=== PATIENT | female | born 1985 | race Caucasian/White ===

== ENCOUNTER 2017-04-07 09:00 | Outpatient (CLI) | payer MEDICAID | END 2017-04-07 23:59 | disposition home or self-care (01) | LOC: D.MAMMO 09:00 | DX: Z12.31 Encounter for screening mammogram for malignant neoplasm of breast (principal) ==

== ENCOUNTER 2019-02-12 13:45 | Inpatient (IN) | payer MEDICAID ==
[~2019-02-12] VITALS: Ht 160 cm; Wt 59.0 kg
--- NOTE | 2019-02-12 13:55 | NUR ---
RECEIVED PT TO FLOOR. QUICK START AND ADMISSION HISTORY TAKEN AT THIS TIME. ATTEMPTED TO START IV ON PT, NOTIFIED SHASTA JORDAN TO MAKE AN ATTEMPT AT AN IV. PT IS RESTING COMFORTABLY IN BED. VSS. T-98.3, BP-131/86, P-91, R-20, O2- 98% ON ROOM AIR. PT DENIES ANY NEEDS AT THIS TIME. WILL CTM.
[2019-02-12] MEDS ORDERED: ADDERALL XR 3030 MG PO (14:04)
[2019-02-12] MEDS ORDERED: ADDERALL 10 MG10 MG PO (14:04)
[2019-02-12] MEDS ORDERED: NEURONTIN 300300 MG PO (14:04)
[2019-02-12] MEDS ORDERED: SULFAMETHOXAZOL1 TA2 PO (14:05)
--- NOTE | 2019-02-12 14:11 | NUR ---
ORDERS FAXED TO PHARMACY FOR MEDICATION ORDER INPUT.
[2019-02-12 14:41] VITALS: BP 131/86
[2019-02-12 14:54] VITALS: BP 131/86; BMI 23.0
[2019-02-12 15:05] LABS: BASOPHILS 0.3 % (0-2); EOSINOPHILS 0.9 % (0-7); HEMATOCRIT 38.5 % (36.0-48.0); HEMOGLOBIN 13.4 g/dL (12-16); IMMATURE GRANULOCYTES 0.3 % (0-5); LYMPHOCYTES 33.4 % (15-50); MCH 30.9 pg (26.0-34.0); MCHC 34.8 g/dL (31.0-37.0); MCV 88.9 fL (80.0-100.0); MEAN PLATELET VOLUME 10.2 fL (7.4-10.4); MONOCYTES 6.9 % (2-11); NEUTROPHILS 58.2 % (40-80); PLATELET COUNT 205 10x3/uL (130-400); RBC 4.33 10x6/uL (4.00-5.40); RDW 13.3 % (11.5-14.5); WBC 7.4 10x3/uL (4.8-10.8)
--- NOTE | 2019-02-12 15:15 | NUR ---
VASCULAR ACCESS NURSE CALLED FOR ASSISTANCE IN PLACING PIV.
--- NOTE | 2019-02-12 15:23 | NUR ---
VASCULAR ACESS NURSE IN ROOM ATTEMPTING TO START IV.
[2019-02-12 15:40] LABS: ALBUMIN 3.7 g/dL (3.4-5.0); ALKALINE PHOSPHATASE 115 U/L (46-116); ALT (SGPT) 13 U/L (10-68); BILIRUBIN - TOTAL 0.28 mg/dL (0.2-1.3); CALC OSMOLALITY 277 mosm/kg (275-300); CALCIUM 9.1 mg/dL (8.5-10.1); CARBON DIOXIDE 26.4 mmol/L (21.0-32.0); CHLORIDE - SERUM 104 mmol/L (98-107); CREATININE - SERUM 0.8 mg/dL (0.6-1.3); GLUCOSE 91 mg/dL (74-106); POTASSIUM - SERUM 3.5 mmol/L (3.5-5.1); SODIUM 140 mmol/L (136-145); UREA NITROGEN 11 mg/dL (7-18); eGFR NON AFRICAN AMERICAN 86 mL/min (90-120)
[2019-02-12 15:50] LABS: C-REACTIVE PROTEIN < 0.2 mg/dL (0.0-0.9)
--- NOTE | 2019-02-12 17:00 | NUR ---
PT CONT WITHOUT IV ACCESS DESPITE MULTIPLE ATTEMPTS FROM MULTIPLE STAFF MEMBERS. VASCULAR ACCESS WITHOUT SUCCESS FOR IV ACCESS WELL. ER NURSE NOTIFIED OF NEED FOR IV ACCESS. 22G PLACED TO RIGHT WRIST X 1 ATTEMPT. BED IS IN THE LOWEST POSITION. CALL LIGHT AND BEDSIDE TABLE ARE WITHIN REACH. SIDE RAILS X 2. PT DENIES FURTHER NEEDS. WILL CONT TO MONITOR.
[2019-02-12 17:10] LABS: UDS - AMPHET POSITIVE QUAL (NEGATIVE); UDS - BARB NEGATIVE QUAL (NEGATIVE); UDS - BENZO NEGATIVE QUAL (NEGATIVE); UDS - COCAINE NEGATIVE QUAL (NEGATIVE); UDS - OPIATE NEGATIVE QUAL (NEGATIVE); UDS - PCP NEGATIVE QUAL (NEGATIVE); UDS - THC NEGATIVE QUAL (NEGATIVE)
--- NOTE | 2019-02-12 17:35 | NUR ---
D/C PT IV DUE TO SWELLING, REDNESS AND PT COMPLAINT OF SEVERE IV PAIN. CATHETER TIP INTACT. TOLERATED WELL. PT REQUESTED WATER, PROVIDED PROMPTLY. RESTING COMFORTABLY SUPINE IN BED. DENIES OTHER NEEDS. WILL CTM.
--- NOTE | 2019-02-12 18:52 | NUR ---
SITED PATIENT'S IV TO THE LEFT HAND WITH A 22G ON THE SECOND ATTEMPT.
[2019-02-12 20:00] VITALS: BP 117/72
--- NOTE | 2019-02-12 20:02 | NUR ---
PAGEMathew GALLEGOS IN REGARDS TO PATIENT'S 02/19 PAIN
[2019-02-12 23:52] VITALS: BP 118/68
[2019-02-13 04:00] VITALS: BP 104/72
[2019-02-13 05:38] LABS: BASOPHILS 0.4 % (0-2); EOSINOPHILS 2.1 % (0-7); HEMATOCRIT 35.4 % (36.0-48.0); IMMATURE GRANULOCYTES 0.2 % (0-5); LYMPHOCYTES 45.5 % (15-50); MCH 30.2 pg (26.0-34.0); MCHC 33.9 g/dL (31.0-37.0); MCV 88.9 fL (80.0-100.0); MEAN PLATELET VOLUME 10.8 fL (7.4-10.4); MONOCYTES 11.1 % (2-11); NEUTROPHILS 40.7 % (40-80); PLATELET COUNT 201 10x3/uL (130-400); RBC 3.98 10x6/uL (4.00-5.40); RDW 13.3 % (11.5-14.5); WBC 5.6 10x3/uL (4.8-10.8)
[2019-02-13 06:23] LABS: ALBUMIN 2.9 g/dL (3.4-5.0); ALKALINE PHOSPHATASE 95 U/L (46-116); ALT (SGPT) 14 U/L (10-68); BILIRUBIN - TOTAL 0.26 mg/dL (0.2-1.3); CALC OSMOLALITY 285 mosm/kg (275-300); CALCIUM 8.3 mg/dL (8.5-10.1); CHLORIDE - SERUM 108 mmol/L (98-107); CREATININE - SERUM 0.8 mg/dL (0.6-1.3); GLUCOSE 102 mg/dL (74-106); MAGNESIUM - SERUM 1.8 mg/dL (1.8-2.4); PHOSPHOROUS 4.4 mg/dL (2.5-4.9); POTASSIUM - SERUM 3.9 mmol/L (3.5-5.1); PROTEIN - SERUM 6.1 g/dL (6.4-8.2); SODIUM 143 mmol/L (136-145); UREA NITROGEN 15 mg/dL (7-18); eGFR NON AFRICAN AMERICAN 86 mL/min (90-120)
--- NOTE | 2019-02-13 07:10 | NUR ---
REPORT RECEIVED FROM CAUL DRESSER AND PATIENT CARE ASSUMED. PATIENT LAYIN IN BED ON LEFT SIDE WITH EYES CLOSED AND BREATHING EVENLY. PATIENT IN NPO AWAITING I AND D TODAY. WILL CONTINUE WITH PLAN OF CARE. SR UP X2 BED IN LOW POSITION AND CALL LIGHT IN REACH.
--- NOTE | 2019-02-13 09:15 | NUR ---
PATIENT IS STABLE AND VSS. CALL FROM SURGERY TEAM TO PREOP PATIENT. PREOPPED PATIENT PER MAR. PATIENT DENIES ANY NEEDS OR PAIN. WILL CONTINUE TO MONITOR. SR UP X 2 BED IN LOW POSITION AND CALL LIGHT IN REACH.
--- NOTE | 2019-02-13 09:58 | NUR ---
RECEIVED CALL FROM INFECTION CONTROL. PATIENT IS TO BE PLACED ON CONTACT PRECAUTIONS FOR POSSIBLE MRSA. PATIENT WILL UNDERGOING AN I AND D CULTURE SPECIMEN WILL BE TAKEN AT THAT TIME. CONTACT PRECAUTIONS IN PLACE.
[2019-02-13 10:37] VITALS: Ht 160 cm; Wt 59.0 kg
--- NOTE | 2019-02-13 10:40 | NUR ---
PATIENT COMPLAINS OF PAIN OF A 10 AND PATIENT IS IN TEARS. MEDICATED PER MAR WITH MORPHINE 4MG IV. PATIENT TOLERATED WELL. WILL CONTINUE TO MONITOR. SR UP X 2 BED IN LOW POSITION AND CALL LIGHT IN REACH.
--- NOTE | 2019-02-13 10:59 | NUR ---
PATIENT IS STABLE AND VSS. SURGERY TEAM IN ROOM TO TRANSPORT PATIENT TO SURGERY VIA HOSPITAL BED.
--- NOTE | 2019-02-13 11:09 | NUR ---
RAYA BOOT USED
--- NOTE | 2019-02-13 12:03 | NUR ---
PT NOT IN ROOM. SHE HAS BEEN TRANSPORTED TO OR FOR I&D OF RIGHT LEG ABSCESS.
--- NOTE | 2019-02-13 12:07 | NUR ---
TWO SILVER COLOR RINGS SENT WITH PT TO PACU ONE WITH HEART ON IT, ONE WITH SMALL CLEAR STONES GIVEN TO PACU NURSE ANDRA LUCAS
--- NOTE | 2019-02-13 14:44 | NUR ---
PATIENT LAYING ON BACK WITH GRAHAM LEGS ELEVATED. PATIENT HAS EYES CLOSED AND BREATHING EVENLY. FAMILY AT BS. WILL CONTINUE TO MONITOR. SR UP X 2 BED IN LOW POSITION AND CALL LIGHT IN REACH.
--- NOTE | 2019-02-13 20:49 | NUR ---
PT C/O PAIN IN LEGS, A LEVEL OF 9. 1MG HYDROMORPHONE GIVEN ORDERED.
[2019-02-13 21:42] VITALS: BP 110/81
--- NOTE | 2019-02-13 22:50 | NUR ---
PT C/O ITCHING IN BOTH LEGS. PAGED [place] FOR BENADRYL. 50MG BENADRYL ONE AND 25 MG BID PRN ORDERED FOR ITCHING. AND GIVEN 50MG FOR PT. WILL MONITOR CLOSELY.
--- NOTE | 2019-02-13 23:01 | NUR ---
I have reviewed this patient and I concur with the Shift Assessment completed by the Licensed Practical Nurse today this shift.
[2019-02-13 23:31] VITALS: BP 108/66
[2019-02-14 04:45] VITALS: BP 105/67
[2019-02-14 05:50] LABS: BASOPHILS 0 % (0-2); EOSINOPHILS 0.2 % (0-7); HEMATOCRIT 34.5 % (36.0-48.0); HEMOGLOBIN 11.7 g/dL (12-16); IMMATURE GRANULOCYTES 0.2 % (0-5); LYMPHOCYTES 16.9 % (15-50); MCHC 33.9 g/dL (31.0-37.0); MCV 88.5 fL (80.0-100.0); MEAN PLATELET VOLUME 10.8 fL (7.4-10.4); MONOCYTES 6.4 % (2-11); NEUTROPHILS 76.3 % (40-80); PLATELET COUNT 197 10x3/uL (130-400); RDW 12.8 % (11.5-14.5)
[2019-02-14 05:55] LABS: WBC 9.1 10x3/uL (4.8-10.8)
[2019-02-14 05:57] LABS: CALC OSMOLALITY 283 mosm/kg (275-300); CALCIUM 8.5 mg/dL (8.5-10.1); CARBON DIOXIDE 28.5 mmol/L (21.0-32.0); CHLORIDE - SERUM 106 mmol/L (98-107); CREATININE - SERUM 0.7 mg/dL (0.6-1.3); GLUCOSE 131 mg/dL (74-106); MAGNESIUM - SERUM 1.5 mg/dL (1.8-2.4); POTASSIUM - SERUM 3.7 mmol/L (3.5-5.1); SODIUM 141 mmol/L (136-145); UREA NITROGEN 14 mg/dL (7-18); eGFR NON AFRICAN AMERICAN > 90 mL/min (90-120)
--- NOTE | 2019-02-14 06:01 | NUR ---
PT SLEEPING UPON ENTERING ROOM. PLACED "DO NOT REMOVE UNNA BOOTS" SIGN ABOVE BED. WOKE PT UP TO TAKE AM MEDS, PT REFUSED TO TAKE MEDS. WOULD NOT GIVE REASON, WENT BACK TO SLEEP.
--- NOTE | 2019-02-14 07:58 | NUR ---
REPORT RECIEVED. PT SITTING UP IN BED CURRENTLY COMPLAINING OF 8/10 PAIN. PAIN MEDS GIVEN. SHE STATES HE LEGS ITCH AND AND HURTING BAD. RR EVEN AND UNLABORED. NO DISTRESS NOTED. BED LOCKED AND IN LOWEST POSITION. CALL LIGHT WITHIN REACH. WILL CTM
[2019-02-14 20:03] VITALS: BP 125/77
[2019-02-15] VITALS: BP 123/75
[2019-02-15 01:56] VITALS: BP 172/73
[2019-02-15 01:59] VITALS: BP 172/73
[2019-02-15 04:00] VITALS: BP 118/88
--- NOTE | 2019-02-15 05:27 | NUR ---
ASSESSED AT THE BEGINNING OF THE SHIFT. PT IS ALERT AND ORIENTED, ABLE TO VERBALIZE NEEDS. SHE WAS FINE AT THE BEGINNING BUT AFTER ABOUT 2200 SHE STARTED COMPLAINING OF SEVERE PAIN IN HER LEGS AND CALLED FOR PAIN MEDS. SHE REFUSED MOST OF HER MEDS AT AND THIS MORNING. SHE DID TAKE HER PROTONIX AFTER BEING REMINDED THAT SHE WAS COMPLAINING OF INDIGESTION EARLIER IN THE NIGHT. AFTER PAIN MEDS SHE SLEEPS FOR A LITTLE WHILE AND THEN CALLS AGAIN FOR PAIN MEDS. THIS MORNING SHE IS RESTING QUIET AFTER MORPHINE.
[2019-02-15 06:44] LABS: BASOPHILS 0.2 % (0-2); EOSINOPHILS 1.4 % (0-7); HEMATOCRIT 33.8 % (36.0-48.0); HEMOGLOBIN 11.4 g/dL (12-16); LYMPHOCYTES 44.8 % (15-50); MCH 30.4 pg (26.0-34.0); MCHC 33.7 g/dL (31.0-37.0); MCV 90.1 fL (80.0-100.0); MEAN PLATELET VOLUME 10.4 fL (7.4-10.4); NEUTROPHILS 45.6 % (40-80); PLATELET COUNT 172 10x3/uL (130-400); RBC 3.75 10x6/uL (4.00-5.40); RDW 13.1 % (11.5-14.5)
[2019-02-15 06:54] LABS: WBC 5.9 10x3/uL (4.8-10.8)
[2019-02-15 07:01] LABS: CALC OSMOLALITY 285 mosm/kg (275-300); CALCIUM 8.1 mg/dL (8.5-10.1); CARBON DIOXIDE 31.1 mmol/L (21.0-32.0); CHLORIDE - SERUM 108 mmol/L (98-107); CREATININE - SERUM 0.8 mg/dL (0.6-1.3); GLUCOSE 94 mg/dL (74-106); MAGNESIUM - SERUM 1.9 mg/dL (1.8-2.4); POTASSIUM - SERUM 3.9 mmol/L (3.5-5.1); SODIUM 144 mmol/L (136-145); UREA NITROGEN 9 mg/dL (7-18); eGFR NON AFRICAN AMERICAN 86 mL/min (90-120)
--- NOTE | 2019-02-15 07:42 | NUR ---
REPORT RECIEVED. PT LYING SUPINE. RR EVEN AND UNLABORED. L HAND PIV INFUSING NS @ [facility]. PT HAS BILAT UNNA BOOT TO LOWER LEGS. BED LOCKED AND IN LOWEST POSITION. CALL LIGHT WITHIN REACH. WILL CTM
[2019-02-15 16:07] VITALS: BP 113/77
--- NOTE | 2019-02-15 17:51 | MORECARE ---
CASE MANAGEMENT DISCHARGE SUMMARY PATIENT: JORJE SHAIKH UNIT: [id number] ADM DATE: 02/13/19 AGE: 33 : 81 SEX: F ROOM/BED: D.1202 AUTHOR: PACO WOLFE PHYSICIAN: REFERRING PHYSICIAN: AVERY KERN MD DATE OF SERVICE: 02/15/19 Discharge Plan Patient Name: JORJE SHAIKH [facility] [facility] 1985 Planned Disposition: Home Anticipated Discharge Date: Discharge Date: Expected LOS: Initial Reviewer: [email or web address] Initial Review Date: 02/15/2019 Generated: 02/15/19 6:51 pm DCPIA - Discharge Planning Initial Assessment Updated by [email or web address]: Sirena Lizarraga on 02/15/19 5:51 pm * Is the patient Alert and Oriented? Yes * How many steps to enter\exit or inside your home? * PCP CONCHA * [facility] * Preadmission Environment Home with Family * ADLs Independent * Equipment None * List name and contact numbers for known caregivers / representatives who currently or will assist patient after discharge: VIRA SHAIKH [facility] - [phone] * Verbal permission to speak to the caregivers and representatives has been obtained from the patient. Yes * Community resources currently utilized None * Additional services required to return to the preadmission environment? No * Can the patient safely return to the preadmission environment? Yes * Has this patient been hospitalized within the prior 30 days at any hospital? No Patient Name: JORJE SHAIKH Page [id number] at 1751 All edits/amendments must be made on the electronic document DICTATION DATE: 02/15/191750 PRODUCT SAFETY HEAD: SHUN 02/15/191750 RPT#: [id number] DC DATE: STATUS: ADM IN [address] [place] [address] END OF REPORT
--- NOTE | 2019-02-15 17:59 | MORECARE ---
CASE MANAGEMENT DISCHARGE SUMMARY PATIENT: JORJE SHAIKH UNIT: [id number] ADM DATE: 02/13/19 AGE: 33 : 83 SEX: F ROOM/BED: D.1202 AUTHOR: YANETH,DOC PHYSICIAN: REFERRING PHYSICIAN: AVERY KERN MD DATE OF SERVICE: 02/15/19 Discharge Plan Patient Name: JORJE SHAIKH [facility]:[place] : 1985 Planned Disposition: Home Anticipated Discharge Date: Discharge Date: Expected LOS: Initial Reviewer: [email or web address] Initial Review Date: 02/15/2019 Generated: 02/15/19 6:59 pm Comments DCP- Discharge Planning Updated by [email or web address]: Sirena Lizarraga on 02/15/19 4:[address] Patient Name: JORJE SHAIKH Admission Status: Urgent Accout number: [id number] Admission Date: 02-13-2019 : 1985 Admission Diagnosis: Attending: CONCHA, Current LOS: 2 Anticipated DC Date: Planned Disposition: Home Primary Insurance: [place] [employer] [facility] Discharge Planning Comments: CM met with patient to complete initial dc planning assessment. CM educated patient on the CM role and verbal consent given by patient to complete assessment. Patient lives at home with her where she is independent with her care. At discharge patient plans to return home and feels this is a safe discharge. CM discussed availability of home health, rehab services, and medical equipment. Patient will have family drive her home upon discharge. Patient denied known discharge needs at this time. Patient has no preference of services if needed upon discharge for wound care. DOMINIQUE signed with that statement. CM will continue to follow and will assist as needed with dc plans/needs. Human Services Program Specialist: Sirena Lizarraga DCPIA - Discharge Planning Initial Assessment Updated by [email or web address]: Sirena Lizarraga on 02/15/19 5:51 pm * Is the patient Alert and Oriented? Yes * How many steps to enter\exit or inside your home? * PCP CONCHA * [facility] * Preadmission Environment Home with Family * ADLs Independent * Equipment None * List name and contact numbers for known caregivers / representatives who currently or will assist patient after discharge: VIRA SHAIKH - SPOUSE - [phone] * Verbal permission to speak to the caregivers and representatives has been obtained from the patient. Yes * Community resources currently utilized None * Additional services required to return to the preadmission environment? No * Can the patient safely return to the preadmission environment? Yes * Has this patient been hospitalized within the prior 30 days at any hospital? No Last DP export: 02/15/19 4:51 pm Patient Name: JORJE SHAIKH Page [id number] at 1759 All edits/amendments must be made on the electronic document DICTATION DATE: 02/15/191758 CASH SALES AUDIT CLERK: SHUN 02/15/191758 RPT#: [id number] ME DATE: STATUS: ADM IN [facility] [address] [place] [address] END OF REPORT
--- NOTE | 2019-02-15 19:23 | NUR ---
BEDSIDE REPORT AND INITIAL ROUNDS COMPLETED. PT RESTING IN BED. NO DISTRESS. KRIS BOOTS IN PLACE. CALL LIGHT IN REACH.
[2019-02-15 20:00] VITALS: BP 139/77
--- NOTE | 2019-02-15 20:40 | NUR ---
VISITORS AT BEDSIDE AND VISITOR IS COMPLAINING THAT ROOM IS TOO "STAGNANT". PATIENT STATES THE SHIRT CLEANER WAS IN THE ROOM AN HOUR AGO AND WORKED ON THE UNIT. ROOM FEELS COOL AND HAS FAN BLOWING. CALLED AND SPOKE WITH FLORES IN ENGINEERING AND HE SAID HE WAS THE ONE THAT COMPLETED THE WORK ORDER ON THE AIR AND HE HAD ALREADY CHECKED BACK ON THE PATIENT AND HOUR AGO AND SHE HAD SAID EVERYTHING WAS GOOD. PATIENT DID NOT HAVE VISITORS AT THAT TIME. FLORES STATES HE WILL RETURN TO UNIT AND RECHECK ROOM AGAIN. FLORES FROM ENGINEERING HAS RETURNED TO ROOM AND USED THE TEMPERATURE GUN TO CHECK THE BLOWING AIR AND IT IS 65 DEGREES. HE STATES PATIENT IS AGAIN SAYING ROOM IS OKAY. WILL MONITOR.
--- NOTE | 2019-02-15 21:09 | NUR ---
PT AND VISITOR NOW REQUESTING TO USE WHEELCHAIR TO GO OUTSIDE FOR FRESH AIR. PT IS ADLIB IN ROOM. KRIS BOOT IN PLACE. DISCUSSED BEDTIME MEDS WITH PATIENT AND SHE DOES NOT WANT TO TAKE HER NEURONTIN. CPOC.
[2019-02-16 01:00] VITALS: BP 119/69
--- NOTE | 2019-02-16 01:19 | NUR ---
PT ON LIGHT, REQUESTING PAIN MED. ARRIVED TO ROOM TO FIND PATIENT IN POSITION CRYING AND MOANING. VSS. IV MORPHINE ADMINISTERED. PT ASKED WHERE HER BENADRYL WAS, ASKED PT IS SHE WAS ITCHING AND SHE SAID SHE WAS USED TO GETTING IT WITH HER MORPHINE. PT THEN BEGAN TO SCRATCH HER ARMS. PROVIDED WITH ORAL BENADRYL. IVF INFUSING AT [facility]. OC.
--- NOTE | 2019-02-16 05:56 | NUR ---
PT CALLED TO STATION FOR ANOTHER PAIN SHOT. WENT TO ROOM TO REMIND PATIENT THAT SHE HAD DILAUDID AT 0430. PT CRYING AND ROCKING IN HER BED. MOANING AND BEATING ON HER LEGS WITH HER HANDS AND HAIRBRUSH. SAYING THAT SHE JUST CANNOT TOLERATE THE PAIN OR THE CONSTANT ITCHING ANYMORE. PT FOLLOWED NURSE UP TO STATION AND ASKED FOR IBUPROFEN. MED GIVEN. PT THEN ASKING FOR FOOD. OFFERED SANDWICH TRAY. PT DECLINED. SHE DID TAKE HER LEFTOVER ICECREAM AND RETURN TO HER ROOM. CPOC. PT DID REFUSE HER AM PROTONIX AND LINZESS.
[2019-02-16 07:14] LABS: BASOPHILS 0.3 % (0-2); EOSINOPHILS 1.8 % (0-7); HEMATOCRIT 35.3 % (36.0-48.0); HEMOGLOBIN 11.7 g/dL (12-16); IMMATURE GRANULOCYTES 0.1 % (0-5); LYMPHOCYTES 37.2 % (15-50); MCH 29.8 pg (26.0-34.0); MCHC 33.1 g/dL (31.0-37.0); MCV 90.1 fL (80.0-100.0); MEAN PLATELET VOLUME 10.9 fL (7.4-10.4); MONOCYTES 8.9 % (2-11); NEUTROPHILS 51.7 % (40-80); PLATELET COUNT 199 10x3/uL (130-400); RBC 3.92 10x6/uL (4.00-5.40); RDW 12.8 % (11.5-14.5); WBC 7.2 10x3/uL (4.8-10.8)
[2019-02-16 07:18] LABS: CALC OSMOLALITY 284 mosm/kg (275-300); CALCIUM 8.7 mg/dL (8.5-10.1); CARBON DIOXIDE 32.9 mmol/L (21.0-32.0); CHLORIDE - SERUM 104 mmol/L (98-107); CREATININE - SERUM 0.9 mg/dL (0.6-1.3); GLUCOSE 93 mg/dL (74-106); MAGNESIUM - SERUM 1.8 mg/dL (1.8-2.4); POTASSIUM - SERUM 3.9 mmol/L (3.5-5.1); SODIUM 143 mmol/L (136-145); eGFR NON AFRICAN AMERICAN 75 mL/min (90-120)
[2019-02-16 07:21] LABS: UREA NITROGEN 13 mg/dL (7-18)
[2019-02-16 08:15] VITALS: BP 105/59
--- NOTE | 2019-02-16 09:15 | NUR ---
PT ALERT X 4. BREATH SOUNDS CLEAR BILAT. IV TO LEFT HAND, PATENT, DRESSING CDI. PT REPORTING PAIN OF 8/10, MEDICATED PER ORDERS, WILL MONITOR. UNNA BOOTS IN PLACE. FAMILY AT BEDSIDE. BED LOW, CALL LIGHT IN REACH. NO OTHER NEEDS AT THIS TIME.
--- NOTE | 2019-02-16 10:53 | NUR ---
PT REQUESTING TO GO HOME TODAY
[2019-02-16 11:58] VITALS: BP 131/83
[2019-02-16] MEDS ORDERED: SULFAMETHOXAZOL1 TA2 PO (16:00)
--- NOTE | 2019-02-16 17:10 | NUR ---
DISCHARGE PAPERWORK SIGNED, ALL QUESTIONS ANSWERED. IV TO LEFT HAND DC'D, TIP INTACT. PT AMBULATED OUT
--- NOTE | 2019-02-18 08:49 | MORECARE ---
CASE MANAGEMENT DISCHARGE SUMMARY PATIENT: JORJE SHAIKH UNIT: [id number] ADM DATE: 02/13/19 AGE: 33 : 81 SEX: F ROOM/BED: D.1202 AUTHOR: YANETH,DOC PHYSICIAN: REFERRING PHYSICIAN: AVERY KERN MD DATE OF SERVICE: 02/18/19 Discharge Plan Patient Name: JORJE SHAIKH [facility]:[place] : 1985 Planned Disposition: Home Anticipated Discharge Date: Discharge Date: 02/16/2019 Expected LOS: Initial Reviewer: [email or web address] Initial Review Date: 02/15/2019 Generated: 02/18/19 9:48 am DCP- Discharge Planning Updated by [email or web address]: Sirena Lizarraga on 02/15/19 4:[address] Patient Name: JORJE SHAIKH Admission Status: Urgent Accout number: [id number] Admission Date: 02-13-2019 : 1985 Admission Diagnosis: Attending: CONCHA, Current LOS: 2 Anticipated DC Date: Planned Disposition: Home Primary Insurance: [place] [employer] [place] Discharge Planning Comments: CM met with patient to complete initial dc planning assessment. CM educated patient on the CM role and verbal consent given by patient to complete assessment. Patient lives at home with her where she is independent with her care. At discharge patient plans to return home and feels this is a safe discharge. CM discussed availability of home health, rehab services, and medical equipment. Patient will have family drive her home upon discharge. Patient denied known discharge needs at this time. Patient has no preference of services if needed upon discharge for wound care. DOMINIQUE signed with that statement. CM will continue to follow and will assist as needed with dc plans/needs. Associate Pastor: Sirena Lizarraga DCPIA - Discharge Planning Initial Assessment Updated by [email or web address]: Sirena Lizarraga on 02/15/19 5:51 pm * Is the patient Alert and Oriented? Yes * How many steps to enter\exit or inside your home? * PCP CONCHA * [facility] * Preadmission Environment Home with Family * ADLs Independent * Equipment None * List name and contact numbers for known caregivers / representatives who currently or will assist patient after discharge: VIRA SHAIKH - SPOUSE - [phone] * Verbal permission to speak to the caregivers and representatives has been obtained from the patient. Yes * Community resources currently utilized None * Additional services required to return to the preadmission environment? No * Can the patient safely return to the preadmission environment? Yes * Has this patient been hospitalized within the prior 30 days at any hospital? No Last DP export: 02/15/19 4:59 pm Patient Name: JORJE SHAIKH Page [phone] at 0849 All edits/amendments must be made on the electronic document DICTATION DATE: 02/18/19847 VP CELEBRITY SERVICES: SHUN 02/18/19847 RPT#: [id number] DC DATE:02/16/19 STATUS: DIS IN [facility] [address] [place] [address] END OF REPORT
--- NOTE | 2019-03-11 17:51 | OP ---
PATIENT NAME: JORJE SHAIKH MEDICAL RECORD: [id number] :[birth year] LOCATION:D.M3 D.1202 ADMISSION DATE:02/13/19 SURGEON: TOMMY WINTERS MD DATE OF OPERATION: 02/13/2019 PREOPERATIVE DIAGNOSIS: Necrotic abscess of the right leg. POSTOPERATIVE DIAGNOSIS: Necrotic abscess of the right leg. Please see the dimensions. PROCEDURES: Wide excision with marsupialization and packing of abscess of the right leg. Dimensions of the debridement, including margins, measures 1.5 x 1.0 cm in greatest dimension. The excised tissues included skin and subcutaneous tissue as well as abscess cavity. I then marsupialized the wound and packed it with sterile moistened gauze. The risks, possible complications, and alternatives to the procedure were explained to the patient. She elects to proceed. OPERATIVE COURSE: The patient was conveyed to the operating room electively on 02/13/2019. General anesthesia was induced by the anesthesia staff. The right leg was sterilely prepped and draped. Through the use of a scalpel, an incision was accomplished overlying the abscess cavity. I excised skin and subcutaneous tissues as well as a portion of the overlying the abscess cavity. I then curetted out the abscess cavity. Cultures were obtained. Meticulous hemostasis was achieved with electrocautery. I then irrigated with hydrogen peroxide. I then marsupialized the wound with a running locking 3-0 Vicryl Rapide suture. I then packed the wound with moistened gauze. The patient was then extubated and conveyed to the post-anesthesia care unit where she was in stable condition. I plan that she will be kept in the hospital for a day or 2 on intravenous antibiotics. TRANSINT:[id number] Voice Confirmation ID: [id number] DOCUMENT ID: [id number] TOMMY WINTERS MD at 1751 CC: [id number] DICTATION DATE: 03/11/19 1154 BIOINFORMATICIST: 03/11/19 1353 DIS IN 02/16/19 [place] [id number]
== END 2019-02-16 17:11 | disposition home or self-care (01) | DRG 572 ==
LOC: D.M3 13:45 → OBSVTIME 13:47 → D.M3 02-13 11:09
PROVIDERS: Family Medicine Adult Medicine; Surgery; ADMIT Family Medicine; ATTEND Family Medicine
PROC: 0JBN0ZZ Excision of Right Lower Leg Subcutaneous Tissue and Fascia, Open Approach (ICD-10-PCS; principal; 2019-02-13 13:15)
DX: L02.415 Cutaneous abscess of right lower limb (principal); F15.90 Other stimulant use, unspecified, uncomplicated; B95.62 Methicillin resistant Staphylococcus aureus infection as the cause of diseases classified elsewhere; F98.8 Other specified behavioral and emotional disorders with onset usually occurring in childhood and adolescence

== ENCOUNTER 2019-08-06 06:39 | Day surgery (SDC) | payer BC ==
[~2019-08-06] VITALS: Ht 160 cm; Wt 63.5 kg
[2019-08-06 06:58] LABS: HEMATOCRIT 39.5 % (36.0-48.0); HEMOGLOBIN 13.2 g/dL (12-16); MCH 30.2 pg (26.0-34.0); MCHC 33.4 g/dL (31.0-37.0); MCV 90.4 fL (80.0-100.0); MEAN PLATELET VOLUME 9.8 fL (7.4-10.4); RBC 4.37 10x6/uL (4.00-5.40); WBC 4.9 10x3/uL (4.8-10.8)
[2019-08-06 07:28] VITALS: BP 113/72; Ht 160 cm; Wt 63.5 kg
--- NOTE | 2019-08-06 14:47 | NUR ---
1245 ARRIVED TO ROOM PT VERY HAPPY AND DROWSEY. 1250 PT HAVING A MILD PANIC ATTACK ABOUT SLING ARROUND NECK. 1300 RECIEVED A TRAY AND TOLERATING WELL. 1350 INSTRUCTIONS GIVEN AND IV REMOVED. ASSISTED WITH GETTING DRESSED, 1355 D.C HOME
--- NOTE | 2019-08-07 08:09 | OP ---
PATIENT NAME: JORJE DAVID MEDICAL RECORD: [id number] :[birth year] LOCATION:[facility] ADMISSION DATE: SURGEON: ANAND ASENCIO DO DATE OF OPERATION: 08/06/2019 PROCEDURE PERFORMED: Right shoulder arthroscopy with subacromial decompression, distal clavicle excision and biceps tenodesis. PREOPERATIVE DIAGNOSES: Right shoulder superior labrum anterior and posterior tear, biceps tendonitis, subacromial impingement and acromioclavicular joint arthritis. POSTOPERATIVE DIAGNOSES: Right shoulder superior labrum anterior and posterior tear, biceps tendonitis, subacromial impingement and acromioclavicular joint arthritis. INDICATIONS: Ms. David is a 34-year-old female who has gone through several rounds of injections and physical therapy for her right shoulder pain. She was tired of dealing with the pain and wants something done surgically to deal with it. I informed her of the risks and benefits of the surgery including continued shoulder pain, infection, bleeding, damage to nerves and vessels, need for further surgery, continued pain and need for physical therapy after she was okay with that and signed a consent. SURGEON: Anand Asencio DO DESCRIPTION OF PROCEDURE: The patient received a block by anesthesia in the preoperative area. She was taken to the operative suite, laid in the left lateral decubitus position and given general anesthetic and LMA was then placed. She was given 2 grams of Ancef preoperatively. After the patient had been positioned and then sedated as described above, an LMA was placed. The right shoulder was then prepped and draped in sterile fashion. Timeout was performed, everyone was in agreeance of the correct side, site, patient and procedure. We then started by putting an 18-gauge spinal needle into the posterior aspect of the shoulder and inflating the shoulder joint itself with 60 mL normal saline. We then established a posterior portal with an 11-blade scalpel and a trocar was entered in the shoulder joint. Anterior portal was then established with an 18-gauge spinal needle and 11-blade scalpel. I then inspected the bicep tendon. There was a type 2 SLAP tear seen just at the apex of the glenoid and then the biceps brought down into the joint. It was seen to be quite irritated. I then used a burner to do a tenotomy at that time of the long head of the bicep tendon. The rest of the shoulder was inspected. The rotator cuff did not have any tears in the subscapularis and the supraspinatus and infraspinatus. There is nothing in the joint. Then went to the subacromial space. A lateral portal was then established using 18-gauge spinal needle and 11-blade scalpel. Subacromial decompression was done with acromioplasty as well as a distal clavicle excision. The AC joint was almost touching the ground together and I opened up the AC joint, approximately 7 mm. I then did a thorough debridement of the rotator cuff on the bursal side and inspected it and did not see any tears on that. I then removed the scope and went to the anterior humerus and a small incision was made in the anterior humerus. Careful dissection was made down to long head biceps tendon was pulled out through the incision and a pin was used to make a hole unicortically in the humerus and then a 2.9 unicortical bicep fixation. A JuggerKnot was used, put in the humerus. It was very well fixed and then I looped the biceps tendon through the loop and cinched it down OPERATIVE REPORT [id number] JORJE DAVID to the humerus and then cut that and went through the bicep tendon itself twice with a free needle using the looped suture that had been accessed. This was then tied and the excess tendon and suture were cut then irrigated. The site was then closed by Alok Michel, certified surgical speech and language assistant. He assisted me with this procedure. The anterior humerus was closed with 2-0 Vicryl in an inverted interrupted fashion. A 4-0 Monocryl ran on the skin and then 4-0 Monocryl run in inverted interrupted fashion. All the portal sites was done. We then covered them with Adaptic glue and Telfa and Tegaderm. She was then awakened and taken to recovery in stable condition. ESTIMATED BLOOD LOSS: Minimal. COMPLICATIONS: None. TRANSINT:[id number] Voice Confirmation ID: [id number] DOCUMENT ID: [id number] ANAND ASENCIO DO at 0809 CC: [id number] DICTATION DATE: 08/06/19 1204 RESTAURANT ASSISTANT MANAGER: 08/06/192037 [facility] 08/06/19 [place] [id number] [place] [id number]
== END 2019-08-06 13:55 | disposition home or self-care (01) ==
LOC: D.OPS 06:39 → D.PAN 13:00 → D.OPS 13:35 → D.PAN 14:00
PROVIDERS: Anesthesiology; ATTEND Orthopaedic Surgery
DX: S43.431A Superior glenoid labrum lesion of right shoulder, initial encounter (principal); M75.21 Bicipital tendinitis, right shoulder; M19.011 Primary osteoarthritis, right shoulder; M75.41 Impingement syndrome of right shoulder